=== PATIENT | female | born 1985 | race Caucasian/White ===

== ENCOUNTER → 2023-12-16 | Outpatient (CLI) | payer OTHER ==
[~2023-12-16] MED LIST: ADDE30TA PO; CLON0.5T2 PO; LUMA42CA PO; PROP10TA56 PO
== END ==
LOC: M PLARAD 09:55
PROVIDERS: ATTEND Psychiatry & Neurology Neurology
DX: G43.719 Chronic migraine without aura, intractable, without status migrainosus (principal)